=== PATIENT | male | born 1970 ===

== ENCOUNTER 2018-09-01 07:32 | Day surgery (SDC) | payer MEDICAID ==
[2018-09-01 08:30] VITALS: TEMP 98.9
[2018-09-01 08:42] VITALS: BMI 29.0
[2018-09-01] MEDS ORDERED: Propofol 10 mg/ml Inj (20 ML) ONE (10:35)
[2018-09-01] MEDS ORDERED: Lactated Ringer's 1,000 ML IV ONE (10:40)
--- NOTE | 2018-09-01 10:40 | CP.SDSHP ---
Same Day Surgery H & P - History Proposed Procedure: colonoscopy Pre-Op Diagnosis: change in bowel habit - Previous Medical/Surgical History Endocrine/Metabolic: Diabetes Previous Surgical History: none - Allergies Allergies: Allergies No Known Allergies Allergy (Verified 09/01/18 08:29) - Current Medications Current Medications: reviewed - Physical Exam General Appearance: wdwn nad Vital Signs: Vital Signs 09/01/18 07:55 Temperature 98.9 F Pulse Rate 72 Respiratory 19 Rate Blood Pressure 129/78 O2 Sat by Pulse 98 Oximetry Mental Status: Alert & Oriented x3 Heart: WNL Lungs: WNL GI: WNL - {Optional Preform as Required} Abdomen: WNL - Impression Impression: altered bowel habits Pt. Evaluated Today:Candidate for Anesthesia & Procedure: Yes - Date & Time Date: 09/01/18 Time: 10:40 Short Stay Discharge - Short Stay Discharge Admitting Diagnosis/Reason for Visit: CHANGE IN BOWEL HABIT Disposition: HOME/ ROUTINE
[2018-09-01 11:24] VITALS: O2SAT 98
[2018-09-01 12:27] VITALS: BP 114/70; PULSE 71; RESP 18
== END 2018-09-01 12:10 | disposition home or self-care (01) ==
LOC: C.ENDO 07:32
PROVIDERS: ATTEND Internal Medicine Gastroenterology
DX: R19.4 Change in bowel habit (principal); E11.9 Type 2 diabetes mellitus without complications
CPT/HCPCS: 45378; 82948; J2704; J7120